=== PATIENT | male | born 1950 | race Caucasian/White ===

== ENCOUNTER 2023-10-25 10:04 | Emergency (ER) | payer OTHER, SELFPAY ==
[2023-10-25 10:06] VITALS: BP 130/78
--- NOTE | 2023-10-25 11:47 | ED.GENMED ---
History of Present Illness
General
Chief Complaint: Head Injury
Time Seen by Provider: 10/25/23 11:23
Travel History
Have you had any contact with someone who has COVID-19?: No
Do you have any symptoms of coronavirus? Fever > 100 degrees, chills, cough, shortness of breath, sore throat, loss of taste or smell, muscle aches, or headache?: No
History of Present Illness
History of Present Illness:
73-year-old male with history of hypertension presents to the emergency department for evaluation of dizziness ongoing for the past 12 hours after a fall. He was playing tennis and fell backward striking the posterior scalp on the ground. No loss
of conscious. Denies any vomiting but is nauseated. Denies any vision changes or neck pain. No extremity paresthesias. Does not take any antiplatelets or anticoagulants
Review of Systems
Review of Systems
Allergies reviewed?: Yes
All Other Systems: ROS reviewed and negative except as documented in HPI and ROS
Phy Exam
Physical Exam
Physical Exam:
GEN: Well appearing, NAD, WDWN
HEENT: Minor abrasion to the midline posterior parietal scalp, no open wounds, no hematoma oral mucosa moist, no scleral icterus, no nasal congestion
Cardiac: Regular rate
Lung: No respiratory distress, no tachypnea
MSK: No gross deformity or injuries, no midline cervical spine tenderness
Skin: Good color, no pallor or jaundice, no rashes
Neuro: AO x3; CN II-XII grossly intact. BUE strength 5/5 in all aguilar, sensation intact and symmetric. BLE strength 5/5 in all aguilar, sensation intact and symmetric
Psych: Calm, cooperative
Course
Orders/Labs/Results
Orders:
Orders
10/25/23 10:11
CT Head W/o Iv Contrast Urgent
Comment:
Reason For Exam: fall, posterior head strike, neck pain
Cervical Spine wo Contrast CT [CT Cervical Spine W/o Iv Contr] Urgent
Comment:
Reason For Exam: fall, posterior head strike, neck pain
Vital Signs
Initial and Last Documented VS:
Initial Vital Signs
Temp Pulse Resp BP Pulse Ox
97.4 F 50 18 130/78 100
10/25/23 10:06 10/25/23 10:06 10/25/23 10:06 10/25/23 10:06 10/25/23 10:06
Last Documented Vital Signs
Temp Pulse Resp BP Pulse Ox
97.4 F 50 18 130/78 100
10/25/23 10:06 10/25/23 10:06 10/25/23 10:06 10/25/23 10:06 10/25/23 10:06
MDM/Problems Addressed
MDM/Problems Addressed:
Well-appearing, no active neurologic deficits at this time. Vertiginous symptoms are likely on the basis of closed head injury. Will provide meclizine for supportive relief
*Critical Care Note
Total Time (30-74mins, 75-104mins- exclusive of procedures): Not Applicable
ED Attending Note
-
Portions of this chart may have been created with voice recognition software.� Occasional wrong word or��sound alike� substitutions may have occurred due to the inherent limitations of voice recognition software.
Discharge Plan
Departure
Patient Disposition: Home (Routine Discharge)
Date of Disposition: 10/25/23
Time of Disposition: 11:48
Patient with high blood pressure during this ER visit?: No
Discharge Problem:
Closed head injury, Vertigo
Instructions: Vertigo (a Type of Dizziness) (DC)
Prescriptions:
New
meclizine 12.5 mg tablet
12.5 mg PO TID PRN (Reason: dizziness) Qty: 10 0RF
Referrals:
Amrit Contreras MD [Family Provider] -
Interventions
Interventions:
*Risk Screen - Suicide Last Done: 10/25/23 11:57
*General Assessment Last Done: 10/25/23 11:57
*Neglect/Abuse Screening Last Done: 10/25/23 11:57
ED- Fall Risk Assessment Last Done: 10/25/23 11:57
*ED COVID-19 Vaccine History Last Done: 10/25/23 11:57
*Nursing Disposition Last Done: 10/25/23 11:57
ED- Neurological Assessment Last Done: 10/25/23 11:56
ED-Skin Assessment Last Done: 10/25/23 11:56
Discharge Date and Time
Discharge Date/Time: 10/25/23 11:58
Print Language: ALBAN[place]
== END 2023-10-25 11:58 | disposition home or self-care (01) ==
LOC: EMR 10:04
PROVIDERS: EMERGENCY PHYSICIAN Emergency Medicine; FAMILY PHYSICIAN Internal Medicine
DX: R42 Dizziness and giddiness (principal); S09.90XA Unspecified injury of head, initial encounter; W19.XXXA Unspecified fall, initial encounter; I10 Essential (primary) hypertension
CPT/HCPCS: 99284; 70450; 72125